=== PATIENT | female | born 1980 | race Two or more races ===

== ENCOUNTER 2021-12-13 08:00 | Outpatient (CLI) | payer OTHER ==
--- NOTE | 2021-12-14 12:01 | XRAY Report ---
PROCEDURE: Wrist 2 View RT INDICATIONS: R WRIST PX TECHNIQUE: 2 views of the wrist were acquired. COMPARISON: None FINDINGS: Bones: No fractures or dislocations. No suspicious bony lesions. Scaphoid view: Not obtained Soft tissues: No suspicious soft tissue calcifications. IMPRESSION: No visualized acute fracture or dislocation. However, occult injury cannot be excluded. Recommend jay rt interval imaging follow-up in 7-10 days as clinically indicated for additional evaluation. Reviewed by: Heidy Dang MD on 12/14/2021 12:00 PM PDT Approved by: Heidy Dang MD on 12/14/2021 12:00 PM PDT Station ID: [id number]
== END 2021-12-13 23:59 | disposition home or self-care (01) ==
LOC: DI.N 08:00
PROVIDERS: ATTEND Nurse Practitioner
DX: M25.531 Pain in right wrist (principal)